=== PATIENT | female | born 1990 | race Caucasian/White ===

== ENCOUNTER 2017-03-11 17:29 | Emergency (ER) | payer SELFPAY ==
[~2017-03-11] VITALS: Ht 157.5 cm; Wt 71.2 kg
[~2017-03-11 17:29] MED LIST: CYCL10TA2 PO; HYDR-2678 PO; IBUP-1060 PO; Ibuprofen PO; Nicotine TD; Oxycodone Hcl/Acetaminophen PO
[2017-03-11 17:32] VITALS: BP 117/70
[2017-03-11] MEDS ORDERED: KETOROLAC TROMETHAMINE 60 MG/2 ML INJ. IM ONE (18:45)
[2017-03-11] MEDS ORDERED: DIAZEPAM 5 MG TABLET PO ONE (18:45)
[2017-03-11] MEDS ORDERED: DEXAMETHASONE SOD PHOS 20 MG/5 ML VIAL. IM ONE (18:45)
[2017-03-11] MEDS ORDERED: MORPHINE SULFATE 10 MG/ML VIAL. IM ONE (18:45)
--- NOTE | 2017-03-11 18:48 | PHYS DOC ---
Past Medical History Past Medical History: Other Additional Past Medical Histor: hx of chronic pain to L arm Past Surgical History: Other Additional Past Surgical Histo: L arm surgery Alcohol Use: None Drug Use: None Adult General Chief Complaint Chief Complaint: LOWER BACK PAIN OR INJURY HPI HPI Patient is a 26 year old female with no significant medical history who presents with mid back pain and spasms that began today after she raised her arm up in the shower. Patient denies any trauma. Patient denies any pain radiating to bilateral lower extremities. Denies any loss of bowel bladder function. Patient denies any urinary symptoms. Review of Systems Review of Systems Constitutional: Denies fever or chills [] Eyes: Denies change in visual acuity, redness, or eye pain [] GI: Denies abdominal pain, nausea, vomiting, bloody stools or diarrhea [] : Denies dysuria or hematuria [] Musculoskeletal: Mid Back pain and spasms Integument: Denies rash or skin lesions [] Neurologic: Denies headache, focal weakness or sensory changes [] Endocrine: Denies polyuria or polydipsia [] Current Medications Current Medications Current Medications Medications (Trade) Dose Ordered Sig/[facility] Start Time Stop Time Status Last Admin Dose Admin Dexamethasone Sodium Phosphate (Decadron) 10 mg 1X ONCE 03/11/17 18:45 03/11/17 18:46 DC Diazepam (Valium) 5 mg 1X ONCE 03/11/17 18:45 03/11/17 18:46 DC Ketorolac Tromethamine (Toradol Im) 60 mg 1X ONCE 03/11/17 18:45 03/11/17 18:46 DC Morphine Sulfate 5 mg 1X ONCE 03/11/17 18:45 03/11/17 18:46 DC Allergies Allergies Allergies Coded Allergies Type Severity Reaction Last Updated Verified No Known Drug Allergies 04/15/14 No Physical Exam Physical Exam Constitutional: Well developed, well nourished, no acute distress, non-toxic appearance. [] HENT: Normocephalic, atraumatic, bilateral external ears normal, oropharynx moist, no oral exudates, nose normal. [] Eyes: PERRLA, EOMI, conjunctiva normal, no discharge. [] Abdomen: Bowel sounds normal, soft, no tenderness, no masses, no pulsatile masses. [] Skin: Warm, dry, no erythema, no rash. [] Back: Patient is guarding her right thoracic region, paraspinal muscle tenderness to the right thoracic region diffusely, no midline tenderness, no CVA tenderness. [] Extremities: No tenderness, no cyanosis, no clubbing, ROM intact, no edema. [] Neurologic: Alert and oriented X 3, normal motor function, normal sensory function, no focal deficits noted. [] Psychologic: Affect normal, judgement normal, mood normal. [] Current Patient Data Vital Signs Vital Signs Date Time Temp Pulse Resp B/P Pulse Ox O2 Delivery O2 Flow Rate FiO2 03/11/17 17:32 91 18 97 Room Air EKG EKG [] Radiology/Procedures Radiology/Procedures [] Course & Med Decision Making Course & Med Decision Making Pertinent Labs and Imaging studies reviewed. (See chart for details) Patient is in the ED with thoracic spasms and pain that began after she raised her right arm up. She was in quite a bit of pain when she arrived in the ED. We gave her Toradol and Valium morphine and Decadron. She was discharged with find him naproxen, Flexeril Medrol Dosepak. Instructed to follow-up with the PCP in 1-2 weeks. Dragon Disclaimer Dragon Disclaimer This electronic medical record was generated, in whole or in part, using a voice recognition dictation system. Departure Departure Impression: Primary Impression: Back muscle spasm Additional Impression: Thoracic back pain Disposition: 01 HOME, SELF-CARE Condition: STABLE Referrals: NO PCP (PCP) Follow-up with the primary care doctor in 1-2 weeks. Patient Instructions: Back Pain, Adult Additional Instructions: You were seen for back pain with spasms. You can apply heat to ice to the affected area. Follow-up with your primary care doctor as soon as you can. Come back to the ED if symptoms worsen. Scripts Methylprednisolone (Medrol)4 Mg Tab.ds.pk1 Pkg PO UD #1 PKG Prov:MUTUNGA,CALLIE [employer] MECHANIC 03/11/17 Naproxen 500 Mg Tablet.dr1 Tab PO BID #60 TAB Ref 2 Prov:MUTUNGA,CALLIE [employer] MECHANIC 03/11/17 Cyclobenzaprine Hcl 10 Mg Tablet1 Tab PO TID #20 TAB Prov:MUTUNGA,CALLIE [employer] MECHANIC 03/11/17 Diazepam (Valium)5 Mg Tablet5 Mg PO BID PRN MUSCLE SPASMS #2 TAB Prov:MUTUNGA,CALLIE AM[employer] MECHANIC 4/13/17 Problem Qualifiers Additional Impression: Thoracic back pain Chronicity: acute Back pain laterality: right Qualified Code: M54.6 - Pain in thoracic spine CALLIE HUSTON APRN Mar 11, 2017 18:48
[2017-03-11] MEDS ORDERED: NAPR500T8 PO (18:54)
[2017-03-11] MEDS ORDERED: METH4TAB2 PO (18:54)
[2017-03-11] MEDS ORDERED: CYCL10TA2 PO (18:54)
[2017-03-11] MEDS ORDERED: DIAZ5TAB PO (18:54)
== END 2017-03-11 19:00 | disposition home or self-care (01) ==
LOC: ER 17:29
DX: M62.830 Muscle spasm of back (principal); M54.6 Pain in thoracic spine
CPT/HCPCS: 96372; 99284; J1100; J1885; J2270

== ENCOUNTER 2017-04-22 19:51 | Emergency (ER) | payer SELFPAY ==
[~2017-04-22] VITALS: Ht 157.5 cm; Wt 72.6 kg
[~2017-04-22 19:51] MED LIST changes: +DIAZ5TAB PO; +METH4TAB2 PO; +NAPR500T8 PO
[2017-04-22 20:43] LABS: BARBITURATES NEG (NEG); BENZODIAZEPINES POS (NEG); CANNABINOIDS NEG (NEG); COCAINE POS (NEG); METHADONE NEG (NEG); OPIATES POS (NEG); PHENCYCLIDINE NEG (NEG)
[2017-04-22] MEDS ORDERED: NICOTINE 14MG PATCH. TD SCH (20:45)
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
[2017-04-22 23:02] VITALS: BP 127/81
--- NOTE | 2017-04-23 07:34 | RAD ---
Indication substance overdose. Assess for potential aspiration. A single view of the chest was obtained. Comparison is made to an examination December 08, 2011. Heart, pulmonary vessels and mediastinum appear normal. The lungs are clear. There is no pleural fluid or pneumothorax. Bony structures appear grossly intact. IMPRESSION: Normal single view of the chest
== END 2017-04-22 23:41 | disposition home or self-care (01) ==
LOC: ER 19:51
DX: T40.1X1A Poisoning by heroin, accidental (unintentional), initial encounter (principal); F14.10 Cocaine abuse, uncomplicated; R40.20 Unspecified coma; F17.210 Nicotine dependence, cigarettes, uncomplicated; R05 Cough; R09.02 Hypoxemia; Y92.89 Other specified places as the place of occurrence of the external cause
CPT/HCPCS: 36415; 71010; 80305; 80320; 81025; 84703; G0480; G0481; 99285-25

== ENCOUNTER 2019-03-13 09:51 | Emergency (ER) | payer SELFPAY ==
[~2019-03-13] VITALS: Ht 157.5 cm; Wt 74.8 kg
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
[2019-03-13] MEDS ORDERED: HYDR-3164 PO (12:55)
[2019-03-13 13:04] VITALS: BP 111/73
== END 2019-03-13 13:04 | disposition home or self-care (01) ==
LOC: ER 09:51
DX: S06.0X0A Concussion without loss of consciousness, initial encounter (principal); S29.019A Strain of muscle and tendon of unspecified wall of thorax, initial encounter; Z71.6 Tobacco abuse counseling; Z72.0 Tobacco use; V43.52XA Car driver injured in collision with other type car in traffic accident, initial encounter; Y93.I9 Activity, other involving external motion; Y92.89 Other specified places as the place of occurrence of the external cause; Y99.8 Other external cause status
CPT/HCPCS: 70450; 72072; 99284